=== PATIENT | female | born 1970 | race African-American/Black ===

== ENCOUNTER 2019-09-15 12:35 | Emergency (ER) | payer OTHER ==
[2019-09-15 13:43] VITALS: BP 125/79
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
[2019-09-15] MEDS ORDERED: IBUPROFEN 800 MG TAB PO ONE (14:20)
--- NOTE | 2019-09-15 15:03 | XRay Report ---
XR spine thoracolumbar 2V INDICATION / CLINICAL INFORMATION: Mid back pain.. COMPARISON: None available. FINDINGS: BONES/JOINT(S): No acute fracture or subluxation. Mild diffuse spondylosis with small anterior and la teral osteophyte without significant disc height loss. No aggressive appearing bone lesion. SOFT TISSUES: No significant abnormality. ADDITIONAL FINDINGS: None. Signer Name: Chetan Lopez MD Signed: 09/15/2019 2:58 PM Workstation Name: [id number]
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
== END 2019-09-15 16:24 | disposition home or self-care (01) ==
LOC: ED 12:35
DX: S23.3XXA Sprain of ligaments of thoracic spine, initial encounter (principal); Z79.899 Other long term (current) drug therapy; V49.49XA Driver injured in collision with other motor vehicles in traffic accident, initial encounter; Y92.410 Unspecified street and highway as the place of occurrence of the external cause; Y93.89 Activity, other specified; Y99.8 Other external cause status
CPT/HCPCS: 72080